=== PATIENT | female | born 1950 | race African-American/Black ===

== ENCOUNTER 2019-11-01 17:14 | Emergency (ER) | payer OTHER ==
[~2019-11-01] VITALS: Ht 160 cm; Wt 77.1 kg
[~2019-11-01 17:14] MED LIST: AUGMENTIN 875875 MG PO; CALCIUM PO; CIPROFLOXACIN500 M1 PO; FISH OIL 1,0001 EAC5 PO; FLAGYL500 MG PO; MOBIC15 MG PO; NOT SURE OF MEDS; PERCOCET 5-3251 EACH OR; PERCOCET 5-3251 EACH PO; SYNTHROID75 MCG PO; ZOCOR 20 MG TAB20 M1 PO; [UNRECOGNIZED DRUG - OTHER] PO
[2019-11-01] MEDS ORDERED: COD LIVER OIL1 EAC4 PO (17:46)
[2019-11-01 18:45] LABS: ABSOLUTE NEUTROPHILS 11.6 thou/uL (1.4-8.2); BASOPHILS 0.6 % (0.0-2.0); EOSINOPHILS 0.7 % (0.0-3.0); HEMATOCRIT 42.6 % (37.0-47.0); HEMOGLOBIN 13.8 gm/dL (12.0-15.0); LYMPHOCYTES 13.1 % (24.0-44.0); MCH 26.5 pg (26.0-34.0); MCHC 32.3 g/dL (28.0-37.0); MONOCYTES 7.1 % (1.0-8.0); PLATELET COUNT 237 thou/uL (150-400); POLYS 78.5 % (36.0-66.0); RDW 14.6 % (10.5-14.5); WBC 14.8 thou/uL (4.0-11.0)
[2019-11-01 19:01] LABS: CALCIUM 9.8 mg/dL (8.5-10.1); POTASSIUM 3.9 mmol/L (3.5-5.1)
[2019-11-01 19:06] LABS: ALBUMIN 3.9 g/dL (3.4-5.0); TOTAL BILIRUBIN 0.6 mg/dL (<0.1-1.0); TOTAL PROTEIN 9.2 g/dL (6.4-8.2)
[2019-11-01 21:39] VITALS: BP 180/91
== END 2019-11-01 21:39 | disposition home or self-care (01) ==
LOC: ER 17:14
PROVIDERS: Nurse Practitioner
DX: J36 Peritonsillar abscess (principal); E03.9 Hypothyroidism, unspecified; E78.00 Pure hypercholesterolemia, unspecified